=== PATIENT | male | born 1960 | race Caucasian/White ===

== ENCOUNTER 2022-05-19 05:56 | Observation (INO) | payer BC ==
[2022-05-18 10:01] LABS: BASOPHILS % (AUTO) 0.4 % (0.0-5.0); EOSINOPHILS % (AUTO) 2.4 % (0.0-8.0); HEMATOCRIT 44.9 % (42-54); LYMPHOCYTES % (AUTO) 32.8 % (21.0-51.0); MEAN CORPUSCULAR HEMOGLOBIN 30.6 pg (27.0-33.0); MEAN CORPUSCULAR HGB CONC 33.4 g/dL (32.0-36.0); MEAN CORPUSCULAR VOLUME 91.6 fL (79-99); MONOCYTES % (AUTO) 11.7 % (3.0-13.0); NEUTROPHILS % (AUTO) 52.5 % (40.0-77.0); PLATELET COUNT (AUTO) 172 K/uL (130-400); RED CELL DISTRIBUTION WIDTH 13.9 % (11.0-15.5); WHITE BLOOD COUNT (AUTO) 5.5 K/uL (4.8-10.8)
[2022-05-18 10:07] LABS: POTASSIUM 4.8 mmol/L (3.5-5.1)
[2022-05-18 13:22] VITALS: BP 121/71
[~2022-05-19] VITALS: Ht 188 cm; Wt 115.2 kg
[2022-05-19] VITALS (22 sets, daily range): BP systolic 121–184; BP diastolic 71–94
[~2022-05-19 05:56] MED LIST: APIX2.5T PO; APIX5TAB PO; LISI2.5T13 PO; ROSU10TA28 PO
[2022-05-19] MEDS: CEFAZOLIN SODIUM 1 GM VIAL IVP SCH ×3 (06:00→12:00)
[2022-05-19] MEDS ORDERED: 0.9% NACL 500ML IV.SOLN 500 ML IV ONE (06:41)
[2022-05-19] MEDS ORDERED: LACTATED RINGERS 1000ML 1,000 ML IV ONE (06:52)
[2022-05-19] MEDS ORDERED: DEXAMETHASONE SOD PHOSPHATE 10MG/ML 1ML VIAL ONE ×2 (07:01→07:03)
[2022-05-19] MEDS ORDERED: GLYCOPYRROLATE 1 MG/5 ML SYRINGE ONE (07:01)
[2022-05-19] MEDS ORDERED: PROPOFOL 10 MG/ML 20ML VIAL IV ONE (07:01)
[2022-05-19] MEDS ORDERED: SUCCINYLCHOLINE CHLORIDE 20 MG/ML 10 ML VIAL ONE (07:01)
[2022-05-19] MEDS ORDERED: MIDAZOLAM HCL 1 MG/ML 2ML VIAL ONE (07:01)
[2022-05-19] MEDS ORDERED: ROCURONIUM 10MG/1ML SYR 10 MG/ML ML ONE ×2 (07:02→08:34)
[2022-05-19] MEDS ORDERED: ONDANSETRON 4MG INJ ONE ×2 (07:02→08:03)
[2022-05-19] MEDS ORDERED: NEOSTIGMINE 5MG/5ML SYR IV ONE (07:02)
[2022-05-19] MEDS ORDERED: FENTANYL CITRATE PF 50 MCG/1 ML 2ML VIAL ONE ×4 (07:02→11:23)
[2022-05-19] MEDS ORDERED: CEFAZOLIN SODIUM 1 GM VIAL ONE ×4 (07:03→22:15)
[2022-05-19] MEDS ORDERED: BUPIVACAINE/EPI/PF 0.5% 30ML VIAL IJ ONE (07:03)
[2022-05-19] MEDS ORDERED: LIDOCAINE HCL 1% MDV 50ML VIAL ONE (07:04)
[2022-05-19] MEDS ORDERED: THROMBIN-JMI 20000 UNIT KIT TP ONE (07:04)
[2022-05-19] MEDS ORDERED: MORPHINE PF 100MG/10ML AMP IV ONE (07:04)
[2022-05-19] MEDS ORDERED: PHENYLEPHRINE HCL 10 MG/ML 1ML VIAL IV ONE ×2 (08:32→11:44)
[2022-05-19] MEDS ORDERED: ARTIFICIAL TEARS 3.5 GM OINTMENT ONE (08:32)
[2022-05-19] MEDS ORDERED: ESMOLOL HCL 10 MG/ML 10 ML VIAL ONE (10:54)
[2022-05-19] MEDS ORDERED: 0.9%NACL 10ML VIAL IVP PRN (12:00)
[2022-05-19] MEDS ORDERED: PROMETHAZINE HCL 25 MG/ML 1ML AMPULE IM PRN (12:00)
[2022-05-19] MEDS ORDERED: MORPHINE 2 MG SYG IVP PRN (12:00)
[2022-05-19] MEDS: CEFAZOLIN SODIUM 3 GM in DEXTROSE 5%-WATER 100 ML IVP SCH ×2 (12:00→22:31)
[2022-05-19] MEDS: DEXAMETHASONE SOD PHOSPHATE 4 MG/ML 1ML VIAL IVP SCH ×2 (12:00→18:05)
[2022-05-19] MEDS ORDERED: LABETALOL 20MG VIAL IV ONE (12:31)
[2022-05-19] MEDS ORDERED: HYDRALAZINE 20MG/ML VIAL ONE (12:43)
[2022-05-19] MEDS: LACTATED RINGERS 1000ML 1,000 ML IV SCH (14:01)
[2022-05-19] MEDS ORDERED: ATORVASTATIN 20 MG TABLET PO SCH (21:00)
[2022-05-19] MEDS ORDERED: LISINOPRIL 2.5 MG TABLET PO SCH (21:00)
[2022-05-19] MEDS: HYDROCODONE/ACETAMINOPHEN 5/325 MG TAB PO PRN (22:31)
[2022-05-20] MEDS: DEXAMETHASONE SOD PHOSPHATE 4 MG/ML 1ML VIAL IVP SCH ×2 (00:02→05:28)
[2022-05-20 01:01] VITALS: BP 132/59
[2022-05-20] MEDS: LACTATED RINGERS 1000ML 1,000 ML IV SCH (01:20)
[2022-05-20] MEDS: CEFAZOLIN SODIUM 3 GM in DEXTROSE 5%-WATER 100 ML IVP SCH (04:00)
[2022-05-20 04:23] VITALS: BP 146/63
[2022-05-20] MEDS: HYDROCODONE/ACETAMINOPHEN 5/325 MG TAB PO PRN (05:31)
[2022-05-20 08:00] VITALS: BP 134/73
== END 2022-05-20 11:24 | disposition home or self-care (01) ==
LOC: DAH 05:56 → DAHIP 05:57 → 4AH 13:24
PROVIDERS: ADMIT Neurological Surgery; ATTEND Neurological Surgery
DX: M48.062 Spinal stenosis, lumbar region with neurogenic claudication (principal); Z20.822 Contact with and (suspected) exposure to COVID-19; M48.061 Spinal stenosis, lumbar region without neurogenic claudication; I10 Essential (primary) hypertension; E78.00 Pure hypercholesterolemia, unspecified; E66.9 Obesity, unspecified; Z79.899 Other long term (current) drug therapy; Z86.711 Personal history of pulmonary embolism
CPT/HCPCS: 36415; 63047; 63048 ×4; 71045; 72020; 80048; 85025; 87635; 96365; 96375; 96376; A4215; A4221; A4222; A4223; A4344; A4510; A4600; A4649 ×2; A4663; A6260; C9803; G0378 ×23; J0330; J0360; J0690 ×5; J1100 ×5; J2250; J2274; J2370 ×2; J2405 ×2; J2704; J2710; J3010 ×4; J3490 ×5; J7040; J7120 ×2; J7060